=== PATIENT | female | born 1980 | race Caucasian/White ===

== ENCOUNTER 2016-11-06 22:47 | Emergency (ER) | payer OTHER ==
[~2016-11-06] VITALS: Ht 160 cm; Wt 116.5 kg
[~2016-11-06 22:47] MED LIST: AZIT250T94 PO; IBUP-1542 PO
[2016-11-06 22:50] VITALS: Ht 160 cm; Wt 116.5 kg
--- NOTE | 2016-11-06 23:28 | ERD ---
ER Documentation Chief Complaint Date/Time DATE: 11/06/16 TIME: 23:25 Chief Complaint dizziness x 1 day HPI 28-year-old female presents to emergency department for complaints of dizziness started this morning, patient woke up, suddenly felt the room is spinning. Patient had an episode of chest pain, denies any pain at this time. Patient describes it as sharp pain, 4/10 scale, is accompanied with dizziness and sudden movement. Patient denies any head injury. Patient denies any vomiting or nausea. Patient denies any fever or chills. Patient denies any cough. Patient denies any focal weakness numbness or tingling. Patient denies any neck pain. ROS All systems reviewed and are negative except as per history of present illness. Medications Home Meds Active Scripts Ibuprofen* (Motrin*) 600 Mg Tab, 600 MG PO Q6, #15 TAB Prov:JUAN ADAMS NP 12/18/15 Azithromycin* (Zithromax*) 250 Mg Tablet, 250 MG PO .ZPACK DIRECTED, #6 TAB TAKE 500 MG (2 TABS) THE FIRST DAY THEN 250 MG (1 TAB) DAYS 2-5 Prov:JUAN ADAMS NP 12/18/15 Allergies Allergies: Coded Allergies: No Known Allergy (Unverified , 09/01/15) PMhx/Soc History of Surgery: Yes (LEFT SHOULDER MASS EXCISION) Anesthesia Reaction: No Hx Neurological Disorder: No Hx Respiratory Disorders: No Hx Cardiac Disorders: No Hx Psychiatric Problems: No Hx Miscellaneous Medical Probl: No Hx Alcohol Use: No Hx Substance Use: No Hx Tobacco Use: No FmHx Family History: No coronary disease, No diabetes, No other Physical Exam Vitals Vital Signs Date Time Temp Pulse Resp B/P Pulse Ox O2 Delivery O2 Flow Rate FiO2 11/06/16 22:50 97.4 86 20 125/69 100 Physical Exam GENERAL: The patient is well developed and appropriate for usual state of health, in no apparent distress. CHEST: Clear to auscultation bilaterally. There are no rales, wheezes or rhonchi. HEART: Regular rate and rhythm. No murmurs, clicks, rubs or gallops. No S3 or S4. ABDOMEN: Soft, nontender and nondistended. Good bowel sounds. No rebound or guarding. No gross peritonitis. No gross organomegaly or masses. No Cox sign or McBurney point tenderness. BACK: No midline or flank tenderness. EXTREMITIES: Equal pulses bilaterally. There is no peripheral clubbing, cyanosis or edema. No focal swelling or erythema. Full range of motion. Grossly neurovascularly intact. NEURO: Alert and oriented. Cranial nerves 2-12 intact. Motor strength in all 4 extremities with 5/5 strength. Sensation grossly intact. Normal speech and gait. Positive Argenis-Hallpike exam. SKIN: There is no apparent rash or petechia. The skin is warm and dry. HEMATOLOGIC AND LYMPHATIC: There is no evidence of excessive bruising or lymphedema. No gross cervical, axillary, or inguinal lymphadenopathy. Result Diagram: 11/07/1610311/07/164 Results 24 hrs Laboratory Tests Test 11/07/16 00:11 11/07/16 01:04 Bedside Urine Blood Negative Bedside Urine Glucose (UA) Negative Bedside Urine Ketones (LAB) Negative Bedside Urine Leukocyte Esterase (L Negative Bedside Urine Nitrite (LAB) Negative Bedside Urine Protein (LAB) Negative Bedside Urine pH (LAB) 5.5 Alanine Aminotransferase (ALT/SGPT) 38IU/L Albumin 3.9g/dl Albumin/Globulin Ratio 1.18 Alkaline Phosphatase 86IU/L Anion Gap 15 Aspartate Amino Transf (AST/SGOT) 25IU/L Basophils # 0.110^3/ul Basophils % 0.6% Blood Urea Nitrogen 20mg/dl Calcium Level 9.3mg/dl Carbon Dioxide Level 30mmol/L Chloride Level 104mmol/L Creatinine 0.65mg/dl Direct Bilirubin 0.00mg/dl Eosinophils # 0.110^3/ul Eosinophils % 1.7% Globulin 3.30g/dl Glucose Level 105mg/dl Hematocrit 38.9% Hemoglobin 12.7g/dl Indirect Bilirubin 0.1mg/dl Lymphocytes # 2.810^3/ul Lymphocytes % 32.7% Mean Corpuscular Hemoglobin 28.0pg Mean Corpuscular Hemoglobin Concent 32.6g/dl Mean Corpuscular Volume 85.7fl Mean Platelet Volume 9.8fl Monocytes # 0.710^3/ul Monocytes % 7.7% Neutrophils # 4.810^3/ul Neutrophils % 56.9% Nucleated Red Blood Cells # 0.010^3/ul Nucleated Red Blood Cells % 0.0/100WBC Platelet Count 60007^3/UL Potassium Level 4.4mmol/L Red Blood Count 4.5410^6/ul Red Cell Distribution Width 14.0% Sodium Level 145mmol/L Total Bilirubin 0.1mg/dl Total Protein 7.2g/dl Troponin I < 0.012ng/ml White Blood Count 8.510^3/ul Current Medications Medications (Trade) Dose Ordered Sig/Margarita Route PRN Reason Start Time Stop Time Status Last Admin Dose Admin Meclizine HCl (Antivert) 25 mg ONCE ONCE PO 11/06/16 23:30 11/06/16 23:31 DC 11/07/16 00:56 Acetaminophen (Tylenol Tab) 500 mg ONCE STAT PO 11/07/16 02:01 11/07/16 02:02 DC 11/07/16 02:11 Meclizine was given here in emergency department. EKG was done, read by me and is normal sinus rhythm at a rate of 75, normal axis , there is no ST changes or changes in the EKG that indicates any cardiac emergencies at this time. Patient's EKG was also reviewed by Dr. Clements. Impression: no acute findings on EKG PROCEDURE: CT Brain without contrast. CLINICAL INDICATION: Dizziness TECHNIQUE: A multiplanar CT of the brain was performed on a CT scanner utilizing axial imaging from the skull base through the vertex without IV contrast. The CTDIvol is 45.01 mGy and the DLP is 720.23 mGycm. One or more of the following dose reduction techniques were utilized: Automated exposure control, adjustment of the mA and/or kV according to patient size, use of iterative reconstruction technique. COMPARISON: None FINDINGS: No evidence of intracranial hemorrhage or abnormal extra-axial fluid collection. The brain parenchyma is normal attenuation morphology with preservation of perez white differentiation and age appropriate size of the ventricles and subarachnoid spaces. The posterior fossa contents, brainstem, craniocervical junction, orbits, pituitary axis, paranasal sinuses, mastoid air cells, and calvarium are unremarkable. IMPRESSION: 1. No intracranial hemorrhage or acute intracranial. RPTAT:AAJJ Physician Jeannette Date Time Electronically viewed and signed by Physician Jeannette on 11/07/2016 00:57 FORD/ CC: EDGAR HEIN NP PROCEDURE: XR Chest. CLINICAL INDICATION: Chest pain TECHNIQUE: Single AP portable chest COMPARISON: 04/15/2015 FINDINGS: The cardiomediastinal silhouette is within normal limits..The lungs are clear though pleural effusion or focal consolidation. No pneumothorax. The osseous structures and soft tissues are unremarkable. IMPRESSION: No evidence for active cardiopulmonary disease. RPTAT:AAJJ Mitzi Clifford Physician Date Time Electronically viewed and signed by Physician Jeannette on 11/07/2016 00:57 FORD/ CC: EDGAR HEIN NP Procedures/MDM Medical Decision Making: Patient symptoms are nonspecific at this time, possible benign positional vertigo. There is low suspicion for neurological emergencies at this time since patients neurologic exam is normal. Patient did not have any altered level consciousness, vomiting, changes in balance or memory after incident. Patients CT scan of the head does not show any neurological emergencies at this time. There is low suspicion for cardiopulmonary emergencies at this time. Patient has low risk factors. EKG is normal, there is no changes in the EKG that indicates cardiac emergencies. Chest X-ray does not show cardiopulmonary emergencies at this time. There is low suspicion for aortic aneurysm, myocardial infarction, pneumothorax, pleural effusion, pulmonary embolism, or any other cardiopulmonary emergencies at this time. Cardiac markers are normal. Patient was given a prescription for meclizine , is advised to follow with primary care doctor in 2-3 days for reevaluation of symptoms. Patient is advised to return to emergency department for any worsening symptoms Departure Diagnosis: Primary Impression: Benign positional vertigo Laterality: unspecified laterality Qualified Code: H81.10 - Benign positional vertigo, unspecified laterality Additional Impression: Atypical chest pain Condition: Stable Patient Instructions: Benign Positional Vertigo, Chest Pain, Uncertain Cause EDGAR HEIN NP Nov 06, 2016 23:28
[2016-11-06] MEDS ORDERED: MECLIZINE 12.5 MG TAB PO ONE (23:30)
[2016-11-07 00:10] LABS: URINE BLOOD (Dip) POC Negative (NEGATIVE)
--- NOTE | 2016-11-07 00:57 | RADRPT ---
PROCEDURE: CT Brain without contrast. CLINICAL INDICATION: Dizziness TECHNIQUE: A multiplanar CT of the brain was performed on a CT scanner utilizing axial imaging fro m the skull base through the vertex without IV contrast. The CTDIvol is 45.01 mGy and the DLP is 72 0.23 mGycm. One or more of the following dose reduction techniques were utilized: Automated exposu re control, adjustment of the mA and/or kV according to patient size, use of iterative reconstructio n technique. COMPARISON: None FINDINGS: No evidence of intracranial hemorrhage or abnormal extra-axial fluid collection. The brain parenchyma is normal attenuation morphology with preservation of perez white differentiatio n and age appropriate size of the ventricles and subarachnoid spaces. The posterior fossa contents, brainstem, craniocervical junction, orbits, pituitary axis, paranasal sinuses, mastoid air cells, and calvarium are unremarkable. IMPRESSION: 1. No intracranial hemorrhage or acute intracranial. RPTAT:AAJJ Physician Jeannette Date Time Electronically viewed and signed by Physician Jeannette on 11/07/2016 00:57 FORD/
--- NOTE | 2016-11-07 00:57 | RADRPT ---
PROCEDURE: XR Chest. CLINICAL INDICATION: Chest pain TECHNIQUE: Single AP portable chest COMPARISON: 04/15/2015 FINDINGS: The cardiomediastinal silhouette is within normal limits..The lungs are clear though pleural effusio n or focal consolidation. No pneumothorax. The osseous structures and soft tissues are unremarkable. IMPRESSION: No evidence for active cardiopulmonary disease. RPTAT:AAJJ Mitzi Clifford Physician Date Time Electronically viewed and signed by Mitzi Clifford Physician on 11/07/2016 00:57 FORD/
[2016-11-07 01:31] LABS: ALBUMIN 3.9 g/dl (3.3-4.9)
[2016-11-07 01:32] LABS: CHLORIDE 104 mmol/L (97-110); POTASSIUM 4.4 mmol/L (3.5-5.1); SODIUM 145 mmol/L (135-144)
[2016-11-07 01:34] LABS: ALBUMIN/GLOBULIN RATIO 1.18; ALKALINE PHOSPHATASE 86 IU/L (42-121); ANION GAP 15 (8-16); ASPARTATE AMINO TRANSFERASE 25 IU/L (15-46); BILIRUBIN,INDIRECT 0.1 mg/dl (0-1.1); BILIRUBIN,TOTAL 0.1 mg/dl (0.2-1.3); BLOOD UREA NITROGEN 20 mg/dl (7-20); CARBON DIOXIDE 30 mmol/L (21-31); CREATININE 0.65 mg/dl (0.44-1.00); TOTAL PROTEIN 7.2 g/dl (6.1-8.1)
[2016-11-07 01:35] LABS: ALANINE AMINOTRANSFERASE 38 IU/L (13-69); CALCIUM 9.3 mg/dl (8.4-10.2); GLUCOSE 105 mg/dl (70-220)
[2016-11-07 01:44] LABS: TROPONIN-I < 0.012 ng/ml (0.00-0.12)
[2016-11-07 01:59] LABS: HEMATOCRIT 38.9 % (37.0-47.0); HEMOGLOBIN 12.7 g/dl (12.0-16.0); MEAN CORPUSCULAR HGB CONC 32.6 g/dl (32.0-37.0); MEAN CORPUSCULAR VOLUME 85.7 fl (82.0-101.0); RED BLOOD COUNT 4.54 10^6/ul (4.20-5.40); WHITE BLOOD COUNT 8.5 10^3/ul (4.8-10.8)
[2016-11-07 02:00] LABS: BASOPHIL # 0.1 10^3/ul (0.0-0.1); BASOPHILS % 0.6 % (0.0-2.0); EOSINOPHILS # 0.1 10^3/ul (0.0-0.5); EOSINOPHILS % 1.7 % (0.0-7.0); LYMPHOCYTES # 2.8 10^3/ul (0.8-2.9); LYMPHOCYTES % 32.7 % (15.0-51.0); MEAN PLATELET VOLUME 9.8 fl (7.4-10.4); MONOCYTE # 0.7 10^3/ul (0.3-0.9); MONOCYTES % 7.7 % (0.0-11.0); NEUTROPHIL # 4.8 10^3/ul (1.6-7.5); NEUTROPHILS % 56.9 % (39.0-77.0); PLATELET COUNT 342 10^3/UL (140-440)
[2016-11-07] MEDS ORDERED: ACETAMINOPHEN 500 MG TAB PO STA (02:01)
[2016-11-07] MEDS ORDERED: MECL12.574 PO (02:34)
[2016-11-07] MEDS ORDERED: ACET500C5 PO (02:34)
[2016-11-07 02:50] VITALS: BP 133/78; PULSE 76; RESP 20; TEMP 97.3
== END 2016-11-07 03:17 | disposition home or self-care (01) ==
LOC: FTE 22:47
DX: H81.10 Benign paroxysmal vertigo, unspecified ear (principal); R07.89 Other chest pain
CPT/HCPCS: 36415; 70450; 71010; 80053; 81003; 84484; 85025; 93005; Z7502; Z7610

== ENCOUNTER 2016-11-09 20:17 | Emergency (ER) | payer OTHER ==
[~2016-11-09] VITALS: Ht 167.6 cm; Wt 116.5 kg
[~2016-11-09 20:17] MED LIST changes: +ACET500C5 PO; +MECL12.574 PO
[2016-11-09 20:20] VITALS: Ht 167.6 cm; Wt 116.5 kg
[2016-11-09] MEDS ORDERED: DIAZEPAM 5 MG TAB PO ONE (22:30)
[2016-11-09] MEDS ORDERED: DIAZ-90 PO (22:56)
--- NOTE | 2016-11-09 23:02 | ERD ---
ER Documentation Chief Complaint Date/Time DATE: 11/09/16 TIME: 22:58 Chief Complaint dizzy x a week, R ear pain along the R jaw, too HPI This is a 36-year-old female presents to the ER patient she is been dizzy for the last week. Patient was seen here 3 days ago was extensively worked up. Patient states that on Friday when she woke up she felt a spinning sensation. Patient [place] and sensation felt better. Patient states that every time she moves her head she experiences a spinning sensation. Episodes last a few seconds. Patient states that she also feels a slight right-sided headache which is very mild. Patient does have a medical history of migraine headaches. Patient denies any fevers or chills. She denies any chest pain or shortness of breath. She denies palpitations. Patient has been taking meclizine however has not helped her. She denies any head trauma. She denies any loss of consciousness. Patient denies any urinary frequency or dysuria. ROS 12 point review of systems was done, all negative except per HPI. Medications Home Meds Active Scripts Diazepam* (Valium*) 5 Mg Tablet, 5 MG PO Q8, #10 TAB Prov:LIU RESENDIZ 11/09/16 Acetaminophen* (Tylophen*) 500 Mg Capsule, 1 CAP PO Q6H Y for PAIN AND OR ELEVATED TEMP, #20 CAP Prov:EDGAR HEIN NP 11/07/16 Meclizine Hcl* (Antivert*) 12.5 Mg Tab, 25 MG PO Q6H Y for DIZZINESS, #20 TAB Prov:EDGAR HEIN NP 11/07/16 Ibuprofen* (Motrin*) 600 Mg Tab, 600 MG PO Q6, #15 TAB Prov:JUAN ADAMS NP 12/18/15 Azithromycin* (Zithromax*) 250 Mg Tablet, 250 MG PO .MARIAMA DIRECTED, #6 TAB TAKE 500 MG (2 TABS) THE FIRST DAY THEN 250 MG (1 TAB) DAYS 2-5 Prov:JUAN ADAMS NP 12/18/15 Allergies Allergies: Coded Allergies: No Known Allergy (Unverified , 09/01/15) PMhx/Soc History of Surgery: Yes (LEFT SHOULDER MASS EXCISION, endoscopy) Anesthesia Reaction: No Hx Neurological Disorder: No Hx Respiratory Disorders: No Hx Cardiac Disorders: No Hx Psychiatric Problems: No Hx Miscellaneous Medical Probl: No Hx Alcohol Use: No Hx Substance Use: No Hx Tobacco Use: No Physical Exam Vitals Vital Signs Date Time Temp Pulse Resp B/P Pulse Ox O2 Delivery O2 Flow Rate FiO2 11/09/16 20:20 99.0 96 18 127/74 98 Physical Exam GENERAL: The patient is well developed and appropriate for usual state of health , in no apparent distress. HEENT: Atraumatic. Conjunctivae are pink. Pupils equal, round, and reactive to light. Extraocular muscles are grossly intact. No nystagmus. Bilateral tympanic membranes are clear with no evidence of erythema, bulging or perforation. NECK: C-spine is soft and supple. There is no cervical lymphadenopathy. CHEST: Clear to auscultation bilaterally. There are no rales, wheezes or rhonchi. HEART: Regular rate and rhythm. No murmurs, clicks, rubs or gallops. EXTREMITIES: Equal pulses bilaterally. There is no peripheral clubbing, cyanosis or edema. No focal swelling or erythema. Full range of motion. Grossly neurovascularly intact. NEURO: Alert and oriented. Cranial nerves II through XII are intact. Motor strength in all 4 extremities with 5/5 strength. Sensation grossly intact. Normal speech and gait. Negative Rhomberg. +2 DTRs. SKIN: There is no apparent rash or petechia. The skin is warm and dry. Results 24 hrs Current Medications Medications (Trade) Dose Ordered Sig/Margarita Route PRN Reason Start Time Stop Time Status Last Admin Dose Admin Diazepam (Valium) 10 mg ONCE ONCE PO 11/09/16 22:30 11/09/16 22:31 DC 11/09/16 22:36 Procedures/MDM Differential Diagnosis includes but is not limited to; Benign positional vertigo , labyrinthitis, vertigo, MS, acoustic neuroma, arrhythmia, anemia, hypoglycemia , infection, dehydration. This is likely benign positional vertigo. Patient is neurologically intact with no focal neurological deficits. I discussed this case with , agrees with my medical decision making. Patient was extensively worked up 3 days ago does not necessary to repeat all tests. History is very consistent with benign positional vertigo. Is well appearing she is afebrile. I shared my medical decision making with the patient and patient feels comfortable trying a different medication. Patient does not want to exposed to too much radiation. At this time suspicion for cardiac etiology is low. Patient has denied any chest pain or palpitations. Patient needs to follow-up with her primary care doctor within 1-2 days return to ER sooner symptoms worsen. She understands and agrees with plan. Departure Diagnosis: Primary Impression: Vertigo Condition: Stable Patient Instructions: Inner Ear Problems: Causes of Dizziness (Vertigo), Vertigo, Unspecified Referrals: KIM LAI MD, ALLEN LEUNG,SARAH ALCANTAR,ANA MONTES Additional Instructions: Llame al doctor MAANA y ilene fanny ANGEL PARA DENTRO DE 1-2 ABAD.Dgale a la secretaria que nosotros le instruimos hacer esta angel.Avise o llame si rebolledo condicin se empeora antes de la angel. Regresa aqui si peor o no mejor. LIU RESNEDIZ Nov 09, 2016 23:02
== END 2016-11-09 23:03 | disposition home or self-care (01) ==
LOC: FTE 20:17
DX: R42 Dizziness and giddiness (principal)
CPT/HCPCS: Z7502; Z7610; 99283

== ENCOUNTER 2017-04-04 20:58 | Emergency (ER) | payer OTHER ==
[~2017-04-04] VITALS: Ht 162.6 cm; Wt 115.5 kg
[~2017-04-04 20:58] MED LIST changes: +DIAZ-90 PO
[2017-04-04 21:01] VITALS: Ht 162.6 cm; Wt 115.5 kg
--- NOTE | 2017-04-04 22:54 | RADRPT ---
PROCEDURE: XR Chest. CLINICAL INDICATION: Chest pain. Neck pain TECHNIQUE: Portable AP upright view of the chest was obtained. COMPARISON: 11/07/2016 FINDINGS: The cardiomediastinal silhouette is within normal limits. The lungs are clear. There is no evidenc e for pleural effusion, pneumothorax or pulmonary vascular congestion. The osseous structures are i ntact with no evidence for acute abnormality. RPTAT:HJJR IMPRESSION: No evidence for acute intrathoracic pathology or interval change from 11/07/2016. Physician Shen Date Time Electronically viewed and signed by Terry Mesa Physician on 04/04/2017 22:54 /
--- NOTE | 2017-04-04 22:54 | RADRPT ---
PROCEDURE: XR Cervical Spine. CLINICAL INDICATION: Neck pain TECHNIQUE: AP, lateral, and odontoid views of the cervical spine were obtained. COMPARISON: None available FINDINGS: Mineralization is within normal limits. No fracture or osseous lesion is identified. Vertebral bod ies are normal in height. Cervical lordosis is preserved. No vertebral subluxation is seen. Inter vertebral discs are normal in height. Minimal anterior spondylosis at C5-6 is noted. Facet joints a ppear maintained. Prevertebral soft tissues, predental space and atlantoaxial joint are unremarkabl e. RPTAT:HJJR IMPRESSION: Unremarkable three-view cervical spine series. Physician Shen Date Time Electronically viewed and signed by Physician Shen on 04/04/2017 22:54 JR/
--- NOTE | 2017-04-04 23:12 | RADRPT ---
PROCEDURE: Ultrasound left breast CLINICAL INDICATION: Feels bump on left breast pain TECHNIQUE: Ultrasound of the left breast and axillary tail was performed COMPARISON: None available FINDINGS: No cyst is seen. No solid mass is seen on ultrasound. IMPRESSION: No sonographic abnormality seen in the left breast. RECOMMENDATION: Clinical follow-up is recommended. Diagnostic mammography can be performed. BIRADS category 1 - negative RPTAT: HJES .Wesley Chairez MD, MD Date Time Electronically viewed and signed by .Wesley Chairez MD, on 04/04/2017 23:11 .S/
[2017-04-05] MEDS ORDERED: CYCL-319 PO (00:03)
[2017-04-05] MEDS ORDERED: IBUP-1542 PO (00:03)
--- NOTE | 2017-04-05 00:15 | ERD ---
ER Documentation Chief Complaint Date/Time DATE: 04/05/17 TIME: 00:11 Chief Complaint left breast pain feels a lump pain extending to left axilla HPI 37-year-old female patient with no significant past medical history presents the ED complaining of left-sided chest/breast pain that started 1 week ago. Reports that she feels like there is a lump and feels that the pain is extending to her left axilla region. States that she is also had neck pain that occurred 3 months ago. Denies any fever, chills, abdominal pain, nausea, vomiting, diarrhea, wheezing, cough. channel lip wetter used. ROS All systems reviewed and are negative except as per history of present illness. Medications Home Meds Active Scripts Ibuprofen* (Motrin*) 600 Mg Tab, 600 MG PO Q6, #30 TAB Prov:JULEE SPRAGUE PA-C 04/05/17 Cyclobenzaprine Hcl* (Cyclobenzaprine Hcl*) 10 Mg Tablet, 10 MG PO TID, #15 TAB Prov:JULEE SPRAGUE PA-C 04/05/17 Diazepam* (Valium*) 5 Mg Tablet, 5 MG PO Q8, #10 TAB Prov:LIU RESENDIZ 11/09/16 Acetaminophen* (Tylophen*) 500 Mg Capsule, 1 CAP PO Q6H Y for PAIN AND OR ELEVATED TEMP, #20 CAP Prov:EDGAR HEIN NP 11/07/16 Meclizine Hcl* (Antivert*) 12.5 Mg Tab, 25 MG PO Q6H Y for DIZZINESS, #20 TAB Prov:EDGAR HEIN NP 11/07/16 Ibuprofen* (Motrin*) 600 Mg Tab, 600 MG PO Q6, #15 TAB Prov:JUAN ADAMS NP 12/18/15 Azithromycin* (Zithromax*) 250 Mg Tablet, 250 MG PO .MARIAMA DIRECTED, #6 TAB TAKE 500 MG (2 TABS) THE FIRST DAY THEN 250 MG (1 TAB) DAYS 2-5 Prov:JUAN ADAMS NP 12/18/15 Allergies Allergies: Coded Allergies: Penicillins (Verified Allergy, Unknown, 04/04/17) PMhx/Soc History of Surgery: Yes (LEFT SHOULDER MASS EXCISION, endoscopy) Anesthesia Reaction: No Hx Neurological Disorder: No Hx Respiratory Disorders: No Hx Cardiac Disorders: No Hx Psychiatric Problems: No Hx Miscellaneous Medical Probl: No Hx Alcohol Use: No Hx Substance Use: No Hx Tobacco Use: No Physical Exam Vitals Vital Signs Date Time Temp Pulse Resp B/P Pulse Ox O2 Delivery O2 Flow Rate FiO2 04/04/17 21:01 98.1 89 20 137/80 98 Physical Exam Const: [id number], well-nourished. In no acute distress. Head: Atraumatic, normocephalic Eyes: Normal Conjunctiva without injection. No purulent discharge. PERRL. EOMI ENT: Normal external ear. Ear canal without erythema. Tympanic membrane pearly perez without effusion or bulging. Nasal canal clear with normal turbinates. Moist oropharynx without tonsillar exudates. Non-erythematous pharynx. Uvula midline. No drooling. No trismus. Neck: Full range of motion. No meningismus. No cervical lymphadenopathy. Resp: Clear to auscultation bilaterally. No wheezing, rhonchi, rales, or crackles. No accessory muscle use. No retractions. Cardio: Regular rate and rhythm. No murmurs, rubs or gallops. Abd: Soft, non tender, non distended. Normal bowel sounds. No palpable masses. No rebound tenderness. No guarding. Chest: Tenderness to palpation of the left chest region with slightly palpable lump. No stones or induration. No erythema or edema. Skin: No petechiae or rashes Back: No midline tenderness. No CVA tenderness. Ext: No cyanosis, or edema. Neur: Awake and alert. Psych: Normal Mood and Affect Procedures/MDM This is a 37-year-old female patient with no significant past medical history presents to the ED complaining of left-sided chest/breast pain that started 1 week ago. Patient also complains of neck pain that started 3 months ago. Patient is afebrile and nontoxic-appearing. Patient has normal vital signs. A chest x-ray, cervical x-ray, breast ultrasound was ordered to further evaluate patient. PROCEDURE: Ultrasound left breast CLINICAL INDICATION: Feels bump on left breast pain TECHNIQUE: Ultrasound of the left breast and axillary tail was performed COMPARISON: None available FINDINGS: No cyst is seen. No solid mass is seen on ultrasound. IMPRESSION: No sonographic abnormality seen in the left breast. RECOMMENDATION: Clinical follow-up is recommended. Diagnostic mammography can be performed. BIRADS category 1 - negative PROCEDURE: XR Cervical Spine. CLINICAL INDICATION: Neck pain TECHNIQUE: AP, lateral, and odontoid views of the cervical spine were obtained. COMPARISON: None available FINDINGS: Mineralization is within normal limits. No fracture or osseous lesion is identified. Vertebral bodies are normal in height. Cervical lordosis is preserved. No vertebral subluxation is seen. Intervertebral discs are normal in height. Minimal anterior spondylosis at C5-6 is noted. Facet joints appear maintained. Prevertebral soft tissues, predental space and atlantoaxial joint are unremarkable. RPTAT:HJJR IMPRESSION: Unremarkable three-view cervical spine series. PROCEDURE: XR Chest. CLINICAL INDICATION: Chest pain. Neck pain TECHNIQUE: Portable AP upright view of the chest was obtained. COMPARISON: 11/07/2016 FINDINGS: The cardiomediastinal silhouette is within normal limits. The lungs are clear. There is no evidence for pleural effusion, pneumothorax or pulmonary vascular congestion. The osseous structures are intact with no evidence for acute abnormality. RPTAT:HJJR IMPRESSION: No evidence for acute intrathoracic pathology or interval change from 2016. Differential diagnosis considered include but is not limited to mastitis, fibroadenoma, cyst, fibrocystic changes, galactocele, fat necrosis, malignancy. Low suspicion for deep space infection, sepsis, cellulitis, or other emergent conditions. Low suspicion for acute myocardial infarction, pneumothorax, pneumonia, cardiac tamponade, pulmonary embolism, pleural effusion, AAA, aortic dissection, Boerhaave's syndrome, cardiac dysrhythmias,meningitis, intracranial bleed, seizure, stroke, TIA or other emergent conditions. Discharge medications: Ibuprofen, Flexeril Follow up with primary care physician in 1-2 days. Instructed patient to return to the ED sooner for any worsening symptoms. Patient's questions were answered. Patient understood and agreed with discharge plan. Patient discharged stable. Departure Diagnosis: Primary Impression: Chest wall pain Additional Impressions: Breast pain Neck pain Condition: Stable Patient Instructions: Muscle Spasm, Breast Self-Exam (BSE), Chest Wall Pain, Costochondritis, Neck Pain, No Trauma Ref[facility]: [facility] Usted se markham hecho un examen mdico de control que le indica que no est en fanny condicin que requiera tratamiento urgente en el Departamento de Emergencia. Un estudio ms profundo y el tratamiento de rebolledo condicin pueden esperar sin ningn riesgo hasta que usted sea atendida/o en el consultorio de rebolledo mdico o fanny cl uvaldo. Es responsabilidad suya arreglar fanny angel para el seguimiento del salbador. MANEJO DE CONDICIONES NO URGENTES EN EL FUTURO 1) Si usted tiene un mdico de atencin primaria: Usted debera llamar a rebolledo mdico de atencin primaria antes de venir al departamento de emergencia. Despus de las horas de consultorio, rebolledo doctor o rebolledo asociado/a est disponible por telfono. El mdico o enfermero de jaspal en el servicio telefnico puede asesorarle por chapis medio para atender el problema, o salbador contrario se puede programar fanny angel. 2) Si usted no tiene un mdico de atencin primaria: Llame al mdico o clnica de referencia que aparece abajo jen las horas de consultorio para hacer fanny angel para que le vean. CLINICAS: [facility] [phone] [facility] [facility] [phone] [facility]. [facility] [phone] [facility] [place] [phone] [facility] [place] [id number] [phone] [facility]. [phone] [facility] () Usted se markham hecho un examen mdico de control que le indica que no est en fanny condicin que requiera tratamiento urgente en el Departamento de Emergencia. Un estudio ms profundo y el tratamiento de rebolledo condicin pueden esperar sin ningn riesgo hasta que usted sea atendida/o en el consultorio de rebolledo mdico o fanny cl uvaldo. Es responsabilidad suya arreglar fanny angel para el seguimiento del salbador. MANEJO DE CONDICIONES NO URGENTES EN EL FUTURO 1) Si usted tiene un mdico de atencin primaria: Usted debera llamar a rebolledo mdico de atencin primaria antes de venir al departamento de emergencia. Despus de las horas de consultorio, rebolledo doctor o rebolledo asociado/a est disponible por telfono. El mdico o enfermero de jaspal en el servicio telefnico puede asesorarle por chapis medio para atender el problema, o salbador contrario se puede programar fanny angel. 2) Si usted no tiene un mdico de atencin primaria: Llame al mdico o condado institucions de referencia que aparece abajo jen las horas de consultorio para hacer fanny angel para que le vean. SI USTED NO PUEDE PAGAR PARA ANSHUL UN MEDICO puede ir a: [facility] [id number] [place] [address] [facility] [address] [place] [address] [facility] [address] [place] [address] [facility] [address] [place] [address] [facility] URGENT CARE/SPECIALTIES Additional Instructions: La medicina que se le recet puede causarle sueo.NO DEBE MANEJAR NI OPERAR MAQUINARIAS PELIGROSAS mientras esta tomando esta medicina! Llame al doctor ilene fanny ANGEL PARA DENTRO DE 2-3 ABAD para obtener fanny mamograf a.Dgale a la secretaria que nosotros le instruimos hacer esta angel.Avise o llame si rebolledo condicin se empeora antes de la angel. Regresa aqui si peor o no mejor. JULEE SPRAGUE PA-C Apr 05, 2017 00:15 JULEE SPRAGUE PA-C Apr 05, 2017 00:15
== END 2017-04-05 00:24 | disposition home or self-care (01) ==
LOC: FTE 20:58
DX: R07.89 Other chest pain (principal); M54.2 Cervicalgia
CPT/HCPCS: 71010; 72040; 76642; Z7502